=== PATIENT | female | born 1930 | race Caucasian/White ===

== ENCOUNTER 2018-04-15 15:47 | Emergency (ER) | payer OTHER ==
[2018-04-15 16:03] VITALS: BP 184/72; PULSE 61; TEMP 98.5; BMI 25.4
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
== END 2018-04-15 17:49 | disposition home or self-care (01) ==
LOC: JER 15:47 → JERFT 15:47 → JER 17:49
DX: Z04.1 Encounter for examination and observation following transport accident (principal); V47.5XXA Car driver injured in collision with fixed or stationary object in traffic accident, initial encounter; Y92.414 Local residential or business street as the place of occurrence of the external cause; Y93.89 Activity, other specified; Y99.8 Other external cause status
CPT/HCPCS: 99281-25